=== PATIENT | female | born 1995 | race Caucasian/White ===

== ENCOUNTER 2024-06-16 23:32 | Emergency (ER) | payer OTHER ==
[2024-06-16 23:42] VITALS: BP 114/73; PULSE 79; RESP 18; TEMP 98.3; BMI 22.4
[2024-06-17] MEDS ORDERED: ACETAMINOPHEN 500 MG TABLET (FP) ONE (00:10)
[2024-06-17] MEDS: ACETAMINOPHEN 500 MG TABLET (FP) PO ONE (00:11)
[2024-06-17] MEDS ORDERED: AMOX TR/POT CLAV 875MG/125MG TABLETS (FP) ONE (00:22)
[2024-06-17] MEDS: AMOX TR/POT CLAV 875MG/125MG TABLETS (FP) PO ONE (00:22)
[2024-06-17 00:47] LABS: THROAT:GRP A STREP NOT DETECTED (NOTDETECTED)
== END 2024-06-17 01:25 | disposition home or self-care (01) ==
LOC: JER 23:32
DX: H92.01 Otalgia, right ear (principal); Z20.822 Contact with and (suspected) exposure to COVID-19
CPT/HCPCS: 0241U-QW; 87651; 99283-25